=== PATIENT | male | born 1945 | race Two or more races ===

== ENCOUNTER 2017-07-11 08:46 | Outpatient (CLI) | payer OTHER | END 2017-07-11 09:07 | disposition home or self-care (01) | LOC: SONOGRAMA 08:46 | DX: I10 Essential (primary) hypertension (principal); R10.84 Generalized abdominal pain ==

== ENCOUNTER 2018-11-26 09:33 | Day surgery (SDC) | payer OTHER ==
[~2018-11-26 09:33] MED LIST: AVAPRO300 MG PO; TAMS0.4C PO
== END 2018-11-26 18:20 | disposition home or self-care (01) ==
LOC: CIR.AMB 09:33
DX: N47.1 Phimosis (principal)